=== PATIENT | female | born 1960 | race Caucasian/White ===

== ENCOUNTER 2020-07-17 11:24 | Emergency (ER) | payer OTHER, SELFPAY ==
--- NOTE | 2020-07-17 11:32 | ED.URI ---
HPI - URI/Sore Throat General Chief Complaint: Upper Respiratory Infection Stated Complaint: headache Time Seen by Provider: 07/17/20 11:32 Source: patient and RN notes reviewed Mode of arrival: ambulatory Limitations: no limitations History of Present Illness HPI Narrative: 60-year-old female presents to the urgent care requesting that she get a rapid test for Covid. States that her daughter tested positive on Tuesday, 2 days ago and she would like to get tested. Patient reports that she had contact with her daughter on Tuesday, 5 days ago. states that she has had an intermittent headache that is taken care of by Tylenol. Denies any fevers. No chills. No cough. No Taste or smell changes. Denies nausea vomiting or diarrhea. No chest pain. No abdominal pain. No nasal congestion or drainage. Related Data Home Medications Medication Instructions Recorded Confirmed atorvastatin 40 mg PO DAILY 07/17/20 07/17/20 diclofenac sodium 50 mg PO DAILY 07/17/20 07/17/20 hydrochlorothiazide 12.5 mg PO DAILY 07/17/20 07/17/20 lisinopril 5 mg PO BID 07/17/20 07/17/20 magnesium 500 mg PO DAILY 07/17/20 07/17/20 tramadol 50 mg PO BID PRN 07/17/20 07/17/20 Allergies Allergy/AdvReac Type Severity Reaction Status Date / Time nitrofurantoin Allergy Hives Verified 07/17/20 11:29 [From Macrobid] Review of Systems Review of Systems: Narrative: CONSTITUTIONAL: Denies fever, chills, or sweats. EYES: Denies visual changes, redness, or discharge. ENT: Denies rhinorrhea, congestion, sore throat, or otalgia. CARDIOVASCULAR: Denies chest pain, palpitations, or edema. RESPIRATORY: Denies cough or dyspnea. GASTROINTESTINAL: Denies abdominal pain, nausea, vomiting, or diarrhea. GENITOURINARY: Denies dysuria or hematuria. SKIN: Denies rash or itching. MUSCULOSKELETAL: Denies back pain, joint pain, or myalgia. NEUROLOGIC: Denies numbness, or weakness. Intermittent generalized headache PSYCHIATRIC: Denies anxiety or depression. All other systems reviewed are negative, except as documented in HPI. PMFSH Comments At the time of my signature, I reviewed and agree with the nursing past medical, surgical, social, and family history. There is no relevant family history pertinent to the patient complaint. Exam Narrative: Exam Narrative: GENERAL: This is a well-nourished, well-developed patient, in no apparent distress. HEAD: normocephalic, atraumatic. EYES: PERRL. Sclera clear/white. Vision is grossly intact. EARS: External ears normal, NECK: Neck supple, non-tender without lymphadenopathy, masses or thyromegaly. CARDIOVASCULAR: Regular rate and rhythm without murmurs, gallops, or rubs. RESPIRATORY: Clear to auscultation. Breath sounds equal bilaterally. No wheezes, rales, or rhonchi. GASTROINTESTINAL: Abdomen soft, non-tender, nondistended. Bowel sounds are active. No hepato-splenomegaly, or palpable masses. No guarding. SKIN: warm, intact with no suspicious lesions or rash, good texture and turgor. NEURO: awake, alert, and oriented to person, place and time. There were no obvious focal neurologic abnormalities. EXTREMITIES: No clubbing, cyanosis, or edema. No joint tenderness, effusion, or edema noted. No calf tenderness. BACK: Nontender without deformity or crepitance. No flank tenderness. Course Vital Signs Vital signs: Vital Signs Temperature 98.4 F 07/17/20 11:42 Pulse Rate 58 L 07/17/20 11:42 Respiratory Rate 12 07/17/20 11:42 Blood Pressure 98/60 L 07/17/20 11:42 Pulse Oximetry 97 07/17/20 11:42 Temperature 98.4 F 07/17/20 11:42 Pulse Rate 58 L 07/17/20 11:42 Respiratory Rate 12 07/17/20 11:42 Blood Pressure 98/60 L 07/17/20 11:42 Pulse Oximetry 97 07/17/20 11:42 Reviewed, within normal limits MDM - URI/Sore Throat Differential Diagnosis Differential diagnosis: Likely upper respiratory infection, sinusitis, viral infection and other (Headache. ) Critical Care Time Critical Care Time Critical C
[2020-07-17 11:42] VITALS: BP 98/60; PULSE 58; RESP 12; TEMP 36.9; O2SAT 97
--- NOTE | 2020-07-17 15:28 | PC.NURSE ---
After patient was discharged, called to tell patient the provider stated we could order a pcr test for covid which would take 48-72 hours for results. Advised patient to call upon arrival and we would go out to her car to obtain specimen. At this time, 1530, patient did not return.
== END 2020-07-17 12:10 | disposition home or self-care (01) ==
PROVIDERS: Emergency Provider Nurse Practitioner; PCP Family Medicine
DX: R51.9 Headache, unspecified (principal); Z20.822 Contact with and (suspected) exposure to COVID-19; Z86.718 Personal history of other venous thrombosis and embolism; E78.00 Pure hypercholesterolemia, unspecified; I10 Essential (primary) hypertension; R01.1 Cardiac murmur, unspecified; Z96.652 Presence of left artificial knee joint
CPT/HCPCS: 99211; G0463